=== PATIENT | female | born 1955 | race Caucasian/White ===

== ENCOUNTER → 2016-04-28 | Outpatient (CLI) | payer BC ==
[~2016-04-28] MED LIST: ACET-1311 PO; CYCL10TA6 PO; IBUP-1427 PO; LEVO88TA PO; ONDA4TAB46 PO; PRED20TA PO; PRLSR20 PO; SUMA25TA12 PO; TRAM-10 PO
== END | disposition home or self-care (01) ==
LOC: C.PAPS 09:48
PROVIDERS: ATTEND Obstetrics & Gynecology
DX: Z01.419 Encounter for gynecological examination (general) (routine) without abnormal findings (principal); N95.8 Other specified menopausal and perimenopausal disorders

== ENCOUNTER 2016-10-03 07:35 | Emergency (ER) | payer BC ==
[~2016-10-03] VITALS: Ht 162.6 cm; Wt 70.0 kg
[~2016-10-03 07:35] MED LIST changes: -CYCL10TA6 PO; -IBUP-1427 PO; -PRLSR20 PO; -SUMA25TA12 PO
[2016-10-03 07:38] VITALS: TEMP 36.4; Ht 162.6 cm; Wt 70.0 kg
[2016-10-03] MEDS ORDERED: MoRPHine SULFATE 10 MG/ML CARP/VIAL IM STA (08:02)
[2016-10-03] MEDS ORDERED: IBUP-1427 PO (08:08)
[2016-10-03] MEDS ORDERED: CYCL10TA6 PO (08:08)
[2016-10-03] MEDS ORDERED: ONDANSETRON 4MG OD TAB SL ONE (08:15)
[2016-10-03] MEDS ORDERED: PRLSR20 PO (08:37)
[2016-10-03] MEDS ORDERED: SUMA25TA12 PO (08:37)
--- NOTE | 2016-10-03 08:38 | EMERGENCY ROOM VISIT NOTE ---
History Report prepared by Ronen: Sherry Cruz Under the Supervision of: Dr. Tristian Clay M.D. First contact with patient: 07:48 Chief Complaint: HEADACHE Stated Complaint: MIGRAINE HEADACHE,NECK & SHOULDER MUSCLE TIGHTNESS History of Present Illness The patient is a 61 year old female who presents to the Emergency Room with complaints of a worsening occipital headache that started 1 week ago. She describes the headache as pressure. She is also experiencing photophobia and nausea. The patient states that she has been experiencing lower back pain from a bulging disc for the past month. She is also experiencing tightness in her neck and bilateral shoulders. She is urinating and moving her bowels normally. The patient denies abdominal pain. The patient has an appointment with her PCP tomorrow but she states that she could not wait secondary to the pain. The patient states that she follows with Dr. Warren - Interventional Pain Medicine and gets shots in her shoulders. The patient states that she has never been on muscle relaxers. She states that she is prescribed Imitrex for migraines and Tramadol for lower back pain. Upon review of the patient's EMR, the patient had a MRI of her back in July 2015. Source of History: patient Onset: 1 week ago Position: head (occiput) Quality: pressure Timing: worsening Associated Symptoms: + neck pain (tightness), + nausea, No abdominal pain Note: photophobia, bilateral shoulder tightness, urinating and moving bowels without difficulty Review of Systems All systems have been listed, reviewed, and are negative other than those previously mentioned. Please see Additional Medical History Sheet. Past Medical & Surgical Medical Problems: (1) Hypothyroidism Family History Cancer Gallbladder disease Heart disease Social History Smoking Status: Never Smoker Marital Status: Current/Historical Medications Scheduled Levothyroxine Sodium (Synthroid), 88 MCG PO DAILY Omeprazole (Prilosec), 20 MG PO DAILY Sumatriptan Succinate (Imitrex), 25 MG PO PRN Scheduled PRN Acetaminophen (Tylenol), 650 MG PO DIRECTED PRN for Pain Cyclobenzaprine Hcl (Flexeril), 10 MG PO TID PRN for back/ neck pain Ibuprofen Tab (Motrin), 600 MG PO Q6H PRN for Pain Tramadol (Ultram), 50 MG PO Q8H PRN for Pain Allergies Coded Allergies: No Known Allergies (Unverified , 10/03/16) Physical Exam Vital Signs Date Time Temp Pulse Resp B/P (MAP) Pulse Ox O2 Delivery O2 Flow Rate FiO2 10/03/16 08:55 68 16 149/89 99 10/03/16 07:38 36.4 68 18 176/93 96 Room Air Physical Exam GENERAL: Patient appears to be in moderate to severe distress. Patient is despondent. Patient awake, alert, oriented x 3. Patient follows commands. Patient does not appear toxic. Patient is adequately hydrated and well- nourished. SKIN: No erythema, pallor, cyanosis or rash HEENT: Normal head, normocephalic, pupils equal, reactive to light and accommodation. Ears normal. Oral cavity and posterior pharynx appear normal. Neck: Significant spasm in the superior region of the trapezius bilaterally, without adenopathy, no neck vein distention. LUNGS: Clear to auscultation. No wheezes, no rales, no rhonchi. HEART: No murmurs. No gallops. No rubs ABDOMEN: Soft, nontender. BACK: Vague tenderness over lower back. EXTREMITIES: No signs of trauma or infection. NEUROLOGIC: Cranial nerves II-XII within normal limits. No gross motor sensory function deficits. Medical Decision & Procedures Medications Administered Medications (Trade) Dose Ordered Sig/Miguel Route Start Time Stop Time Status Last Admin Dose Admin Morphine Sulfate (MoRPHine SULFATE INJ) 8 mg NOW STAT IM 10/03/16 08:02 10/03/16 08:04 DC 10/03/16 08:09 8 MG Ondansetron HCl (Zofran Odt) 4 mg ONE ONCE SL 10/03/16 08:15 10/03/16 08:16 DC 10/03/16 08:09 4 MG ED Course 0749: Past medical records reviewed. The patient was evaluated in room A9. A complete history and physical examination was performed. 0759: After examination, I discussed today's findings with her. She verbalized agreement of the treatment plan. She was discharged home. 0802: Ordered Morphine Sulfate 8 mg IM 0815: Ordered Zofran Odt 4 mg SL Medical Decision Nurses notes reviewed. Medical history sheet reviewed. Differential diagnosis includes but is not limited to: tension headache, migraine, sinus headache, cluster headache. The patient has symptoms and clinical findings most consistent with a tension headache. She has significant muscular spasm. The patient was given pain medication. I do not believe the patient requires any imaging studies at this time. The patient felt significant better. Medication Reconcilliation Current Medication List: was personally reviewed by me Blood Pressure Screening Patient's blood pressure: Elevated blood pressure Blood pressure disposition: Referred to PCP Impression Primary Impression: Tension headache Scribe Attestation The scribe's documentation has been prepared under my direction and personally reviewed by me in its entirety. I confirm that the note above accurately reflects all work, treatment, procedures, and medical decision making performed by me. Departure Information Dispostion Home / Self-Care Prescriptions Ibuprofen Tab (MOTRIN) 600 Mg Tab 600 MG PO Q6H Y for Pain, #40 TAB Prov: Tristian Clay M.D. 10/03/16 Cyclobenzaprine Hcl (FLEXERIL) 10 Mg Tab 10 MG PO TID Y for back/ neck pain, #30 TAB Prov: Tristian Clay M.D. 10/03/16 Referrals Elizabeth Alas D.O. (PCP) Forms HOME CARE DOCUMENTATION FORM, IMPORTANT VISIT INFORMATION Patient Instructions My [facility] Additional Instructions 1 Flexeril every 8 hours as needed for pain. 600 mg of Ibuprofen every 6 hours as needed for pain. Flexeril may cause sedation. Do not drive or operate machinery while on Flexeril. Follow up with your family doctor within 2 weeks.
[2016-10-03 08:55] VITALS: BP 149/89; PULSE 68; O2SAT 99
== END 2016-10-03 08:57 | disposition home or self-care (01) ==
LOC: C.EDB 07:37 → C.EDA 08:57
DX: G44.209 Tension-type headache, unspecified, not intractable (principal); E03.9 Hypothyroidism, unspecified; Z79.899 Other long term (current) drug therapy; Z80.9 Family history of malignant neoplasm, unspecified; Z83.79 Family history of other diseases of the digestive system; Z82.49 Family history of ischemic heart disease and other diseases of the circulatory system

== ENCOUNTER → 2016-10-11 | Outpatient (CLI) | payer BC ==
[~2016-10-11] MED LIST changes: +CYCL10TA6 PO; +IBUP-1427 PO; -ONDA4TAB46 PO; -PRED20TA PO; +PRLSR20 PO; +SUMA25TA12 PO
--- NOTE | 2016-10-11 15:36 | DIAGNOSTIC IMAGING REPORT ---
LUMBAR SPINE 5 VIEWS HISTORY: Chronic back pain. COMPARISON: Lumbar spine 07/19/2015. FINDINGS: Moderate facet osteoarthritis at L5-S1 and mild facet osteoarthritis at L4-L5. Grade I anterolisthesis of L5 on S1, unchanged. Vertebral body heights are maintained. Mild disc space narrowing at L4-L5 and L5-S1, unchanged. No fractures. IMPRESSION: No fractures within the lumbar spine. Degenerative changes within the lower lumbar spine and grade I anterolisthesis at L5-S1 remains unchanged. Electronically signed by: Kodi Real M.D. 10/11/2016 3:35 PM Dictated Date/Time: 10/11/2016 3:32 PM
== END | disposition home or self-care (01) ==
LOC: C.RAD 14:59
PROVIDERS: ATTEND Family Medicine
DX: M54.5 Low back pain (principal); M43.17 Spondylolisthesis, lumbosacral region

== ENCOUNTER → 2017-07-19 | Outpatient (CLI) | payer OTHER ==
[~2017-07-19] MED LIST changes: -CYCL10TA6 PO; -IBUP-1427 PO
--- NOTE | 2017-07-21 07:47 | MAMMOGRAPHY REPORT ---
BILATERAL DIGITAL SCREENING MAMMOGRAM TOMOSYNTHESIS WITH CAD: 07/19/2017 CLINICAL HISTORY: Routine screening. Patient has no complaints. TECHNIQUE: Breast tomosynthesis in addition to standard 2D mammography was performed. Current study was also evaluated with a Computer Aided Detection (CAD) system. COMPARISON: Comparison is made to exams dated: 07/29/2013 mammogram - [facility] an d 07/31/2008 mammogram - [facility] [place]. BREAST COMPOSITION: There are scattered areas of fibroglandular density in both breasts. FINDINGS: No suspicious masses, calcifications, or areas of architectural distortion are noted in ei ther breast. There has been no significant interval change compared to prior exams. IMPRESSION: ACR BI-RADS CATEGORY 1: NEGATIVE There is no mammographic evidence of malignancy. A 1 year screening mammogram is recommended. The pa tient will receive written notification of the results. Approximately 10% of breast cancers are not detected with mammography. A negative mammographic report should not delay biopsy if a clinically suggestive mass is present. Emily Ramirez M.D. ah/:07/19/2017 16:04:53 Cake Icer: Maria Del Carmen LLANES(Georgette)(M), [facility] letter sent: Normal 1/2 BI-RADS Code: ACR BI-RADS Category 1: Negative
== END | disposition home or self-care (01) ==
LOC: C.MAMM 15:05
PROVIDERS: ATTEND Family Medicine
DX: Z12.31 Encounter for screening mammogram for malignant neoplasm of breast (principal)

== ENCOUNTER → 2017-08-02 | Outpatient (CLI) | payer OTHER ==
--- NOTE | 2017-08-02 15:21 | DIAGNOSTIC IMAGING REPORT ---
R RIBS UNILATERAL WITH PA CHEST CLINICAL HISTORY: 62 years-old Female presenting with R22.2 LOCALIZED SWELLING, MAS AND LUMP, TRUNK. TECHNIQUE: PA view of the chest and frontal and oblique views of the right ribs were obtained. COMPARISON: None. FINDINGS: Atherosclerosis of the aortic arch. Cardiac silhouette top normal in size. Lungs and pleural spaces clear. Degenerative changes of the spine. Cholecystectomy clips noted. No displaced right rib fracture. IMPRESSION: 1. No acute cardiopulmonary disease. 2. No displaced right rib fracture. Electronically signed by: Lv Estrada M.D. 08/02/2017 3:20 PM Dictated Date/Time: 08/02/2017 3:19 PM
== END | disposition home or self-care (01) ==
LOC: C.RAD1850 14:49
PROVIDERS: ATTEND Student in an Organized Health Care Education/Training Program
DX: R22.2 Localized swelling, mass and lump, trunk (principal)

== ENCOUNTER → 2017-10-17 | Outpatient (CLI) | payer OTHER ==
[~2017-10-17] MED LIST changes: +ATOR-22 PO; +DICY10CA55 PO; +LEVO75TA PO; +OPTIRAY 320 IV PRN; +SUMA25TA PO; +ULT50X PO
--- NOTE | 2017-10-17 07:55 | DIAGNOSTIC IMAGING REPORT ---
CT SCAN OF THE CHEST WITH IV CONTRAST CLINICAL HISTORY: Right-sided chest wall mass. COMPARISON STUDY: Chest x-ray dated 08/02/2017. Ultrasound of the right chest wall dated 08/08/2017. TECHNIQUE: Following the IV administration of 92 cc of Optiray 320, CT scan of the thorax was performed from the thoracic inlet to the upper abdomen. Images are reviewed in the axial, sagittal, and coronal planes. IV contrast was administered without complication. A dose lowering technique was utilized adhering to the principles of ALARA. CT DOSE: 227.77 mGy.cm FINDINGS: Thyroid: Atrophic. Thoracic aorta: The thoracic aorta is normal in caliber and demonstrates standard 3-vessel arch anatomy. No dissection is seen. Pulmonary vasculature: The pulmonary trunk is normal in caliber. There are no filling defects identified in the central pulmonary vessels to indicate pulmonary embolus. Note that this examination was not protocoled for evaluation of the pulmonary arteries. Heart: The heart is normal in size and configuration, and without pericardial effusion. Lungs and pleural spaces: The lungs and pleural spaces are clear noting foci of bibasilar atelectasis. The trachea and central airways are patent. Mediastinum: There is no mediastinal lymphadenopathy. Sue: Clear. Axillae: There is no axillary lymphadenopathy. Upper abdomen: Cholecystectomy clips are noted. There is central intrahepatic biliary ductal dilatation. A small hiatal hernia is identified Skeletal structures: The skeletal structures are osteopenic. Mild degenerative change is noted in the thoracic spine. No lytic or blastic bony lesions are seen. Soft tissues: There is a lobulated water attenuation lesion seen deep to the right breast and pectoral muscle in the right anterior chest wall. This measures 3.1 x 1.8 cm, and there is no evidence of invasion of the overlying musculature or remodeling of the underlying rib. IMPRESSION: 1. There is a 3.1 x 1.8 cm lobulated, nonaggressive appearing, water attenuation lesion deep to the right breast and pectoralis muscle. No enhancing nodularity or soft tissue component is seen. This is pathologically indeterminant, and differential considerations include a lymphangioma, cystic nerve sheath tumor, chronic seroma/liquefied hematoma, or other cystic lesion. Ultrasound-guided fine-needle aspiration of this nodule is recommended. 2. The lungs are clear. 3. Additional findings as above. Electronically signed by: Thong Cisneros M.D. 10/17/2017 7:54 AM Dictated Date/Time: 10/17/2017 7:34 AM
== END | disposition home or self-care (01) ==
LOC: C.CTS 07:00
PROVIDERS: ATTEND Physician Assistant
DX: R22.2 Localized swelling, mass and lump, trunk (principal); N64.9 Disorder of breast, unspecified; M62.9 Disorder of muscle, unspecified

== ENCOUNTER → 2017-10-24 | Outpatient (CLI) | payer OTHER ==
[~2017-10-24] MED LIST changes: -OPTIRAY 320 IV PRN
[2017-10-24 10:07] LABS: BASO % 1.5 %; BASO ABS # 0.08 K/uL (0-0.2); EOS ABS # 0.16 K/uL (0-0.5); HEMATOCRIT 38.9 % (37-47); HEMOGLOBIN 12.9 g/dL (12.0-16.0); LYMPH ABS # 2.06 K/uL (1.2-3.4); MEAN CELL VOLUME 88.2 fL (80-100); MEAN CORPUSCULAR HEMOGLOBIN 29.3 pg (25-34); MEAN CORPUSCULAR HGB CONC 33.2 g/dl (32-36); MEAN PLATELET VOLUME 9.6 fL (7.4-10.4); MONO % 6.3 %; MONO ABS # 0.34 K/uL (0.11-0.59); NEUT % 51.2 %; NEUT ABS # 2.78 K/uL (1.4-6.5); PLATELET COUNT 240 K/uL (130-400); RED CELL DISTRIBUTION WIDTH CV 12.2 % (11.5-14.5); RED CELL DISTRIBUTION WIDTH SD 39.1 fL (36.4-46.3); WHITE BLOOD COUNT 5.42 K/uL (4.8-10.8)
[2017-10-24 10:37] LABS: BLOOD UREA NITROGEN 12 mg/dl (7-18); CALCIUM 9.4 mg/dl (8.5-10.1); CARBON DIOXIDE 27 mmol/L (21-32); CREATININE 0.64 mg/dl (0.60-1.20); GLUCOSE 97 mg/dl (70-99); POTASSIUM 3.6 mmol/L (3.5-5.1); SODIUM 141 mmol/L (136-145)
== END | disposition home or self-care (01) ==
LOC: C.CPL 09:18
PROVIDERS: ATTEND Surgery
DX: Z01.818 Encounter for other preprocedural examination (principal); M79.9 Soft tissue disorder, unspecified

== ENCOUNTER 2017-10-25 09:56 | Inpatient (IN) | payer OTHER ==
[2017-10-24 07:59] VITALS: BMI 25.0
[~2017-10-25] VITALS: Ht 162.6 cm; Wt 67.7 kg
[2017-10-25] VITALS (8 sets, daily range): BP systolic 118–168; BP diastolic 72–84; PULSE 64–82; TEMP 36.3–36.9; O2SAT 93–98; Ht 162.6 cm; Wt 67.7 kg
[~2017-10-25 09:56] MED LIST changes: -ACET-1311 PO; +LACTATED RINGER'S 1000ML 1,000 ML IV SCH; -LEVO88TA PO; -PRLSR20 PO; -SUMA25TA12 PO; -TRAM-10 PO; -ULT50X PO
[2017-10-25] MEDS ORDERED: BUPIVACAINE LIPOSOME 1/3% 266 MG/20 ML VIAL ONE (12:42)
[2017-10-25] MEDS ORDERED: BUPIVACAINE 0.5 % 5 MG/1 ML PF 10ML VIAL ONE (12:42)
[2017-10-25] MEDS ORDERED: SODIUM CHLORIDE 0.9% PF 50 ML VIAL ONE (12:42)
[2017-10-25] MEDS ORDERED: DEXAMETHASONE SOD INJ 4 MG/ML VIAL ONE (12:48)
[2017-10-25] MEDS ORDERED: MIDAZOLAM HCL 1 MG/ML 2ML VIAL ONE (12:48)
[2017-10-25] MEDS ORDERED: ONDANSETRON INJ 2 MG/ML 2 ML VIAL ONE (12:48)
[2017-10-25] MEDS ORDERED: PROPOFOL IV EMULSION 10 MG/ML 20 ML VIAL ONE (12:48)
[2017-10-25] MEDS ORDERED: LIDOCAINE HCL 2% 2 ML VIAL (20MG/ML) ONE (12:48)
[2017-10-25] MEDS ORDERED: FENTANYL CITRATE INJ 50 MCG/1 ML 2 ML VIAL ONE ×2 (12:48→13:47)
--- NOTE | 2017-10-25 12:58 | History & Physical Bridge Note ---
H&P Re-Evaluation Bridge Note: I have examined the patient, reviewed the History & Physical and in the interval since the performance of the History & Physical I have noted the following changes of clinical significance: No changes noted
[2017-10-25] MEDS ORDERED: NALOXONE HCL 0.4 MG/1 ML VIAL/CARP IV PRN (13:00)
[2017-10-25] MEDS ORDERED: PHENYLEPHRINE 100MCG/ML 5ML SYR IV PRN (13:00)
[2017-10-25] MEDS ORDERED: ONDANSETRON INJ 2 MG/ML 2 ML VIAL IV PRN (13:00)
[2017-10-25] MEDS ORDERED: EpHEDrine SULFATE INJ 50 MG/ML AMP IV PRN (13:00)
[2017-10-25] MEDS ORDERED: LABETALOL HCL IV 5 MG/ML 20ML IV PRN (13:00)
[2017-10-25] MEDS ORDERED: FLUMAZENIL 0.1 MG/1 ML 10 ML VIAL IV PRN (13:00)
[2017-10-25] MEDS ORDERED: MEPERIDINE HCL 25 MG/ML CARP IV PRN (13:00)
[2017-10-25] MEDS ORDERED: ATROPINE SULFATE 0.1 MG/ML 5ML SYR IV PRN (13:00)
[2017-10-25] MEDS ORDERED: CEFAZOLIN SOD 1 GM VIAL ONE (13:40)
[2017-10-25] MEDS ORDERED: GLYCOPYRROLATE INJ 0.2 MG/ML VIAL ONE ×2 (13:52→14:14)
[2017-10-25] MEDS ORDERED: NEOSTIGMINE METHYLSULFATE 5 MG/5 ML SYR ONE (13:52)
[2017-10-25] MEDS ORDERED: ROCURONIUM BROMIDE 10 MG/ML 5 ML VIAL ONE (13:57)
--- NOTE | 2017-10-25 14:32 | [facility] Post Operative Brief Note ---
Immediate Operative Summary Operative Date Oct 25, 2017. Pre-Operative Diagnosis Right Chest Mass Post-Operative Diagnosis Same Procedure(s) Performed Right chest wall resection Surgeon Dr. Maco Tavarez Employee Benefits Specialist Surgeon(s) Alexis Hart PA-C Estimated Blood Loss 10ML Findings Consistent with Post-Op Diagnosis Specimens Frozen Section 1. Right chest wall mass, sent at 1355. Anesthesia Type General
[2017-10-25] MEDS: FENTANYL CITRATE INJ 50 MCG/1 ML 2 ML VIAL IV PRN ×4 (14:41→15:06)
[2017-10-25] MEDS ORDERED: SUMATRIPTAN SUCCINATE 25 MG TAB PO PRN (14:45)
[2017-10-25] MEDS ORDERED: DICYCLOMINE HCL 10 MG CAP PO PRN (14:45)
--- NOTE | 2017-10-25 15:01 | DIAGNOSTIC IMAGING REPORT ---
CHEST ONE VIEW PORTABLE CLINICAL HISTORY: chest tube tube position COMPARISON STUDY: No previous studies for comparison. FINDINGS: Right-sided chest tube in good position. No significant postprocedural pneumothorax. Slight interstitial prominence bilaterally. IMPRESSION: No significant pneumothorax. Right-sided chest tube in good position. The above report was generated using voice recognition software. It may contain grammatical, syntax or spelling errors. Electronically signed by: Erasmo Avelar M.D. 10/25/2017 3:00 PM Dictated Date/Time: 10/25/2017 2:59 PM
[2017-10-25] MEDS: HYDROmorphone INJ 0.5 MG/0.5 ML SYR IV PRN ×2 (15:21→15:29)
--- NOTE | 2017-10-25 15:29 | Anesthesiology Progress Note ---
Anesthesia Post Op Note Date & Time Oct 25, 2017 at 15:28 Vital Signs Pain Intensity: 3 Vital Signs Past 12 Hours Date Time Temp Pulse Resp B/P (MAP) Pulse Ox O2 Delivery O2 Flow Rate FiO2 10/25/17 15:22 59 18 10/25/17 15:22 59 18 99 10/25/17 15:21 169/71 10/25/17 15:17 58 12 10/25/17 15:17 59 12 99 10/25/17 15:16 181/73 10/25/17 15:12 58 12 98 10/25/17 15:12 58 12 10/25/17 15:11 157/77 10/25/17 15:07 63 10 99 10/25/17 15:07 62 10 10/25/17 15:06 152/63 10/25/17 15:05 58 9 99 10/25/17 15:05 58 9 10/25/17 15:01 166/76 10/25/17 15:00 60 12 99 10/25/17 15:00 61 12 10/25/17 14:56 180/76 10/25/17 14:55 61 10 98 10/25/17 14:55 61 10 10/25/17 14:51 187/82 10/25/17 14:50 68 14 97 10/25/17 14:50 67 14 10/25/17 14:46 175/88 10/25/17 14:45 70 14 100 10/25/17 14:45 70 14 10/25/17 14:41 193/85 10/25/17 14:40 63 17 10/25/17 14:40 63 17 99 10/25/17 14:36 168/91 10/25/17 14:35 69 15 100 10/25/17 14:35 69 15 10/25/17 14:35 36.3 70 16 168/91 (105) 100 Oxymask 10 10/25/17 10:33 36.8 71 18 168/81 97 Room Air Notes Mental Status: alert / awake / arousable, participated in evaluation Pt Amnestic to Procedure: Yes Nausea / Vomiting: adequately controlled Pain: adequately controlled Airway Patency, RR, SpO2: stable & adequate BP & HR: stable & adequate Hydration State: stable & adequate Anesthetic Complications: no major complications apparent
[2017-10-25] MEDS ORDERED: PROMETHAZINE HCL INJ 12.5 MG in SODIUM CHLORIDE 0.9% 50ML 50 ML IV STA (16:09)
[2017-10-25] MEDS: ONDANSETRON INJ 2 MG/ML 2 ML VIAL IV PRN (18:13)
[2017-10-25] MEDS: D5W AND 1/2NSS 1,000 ML IV SCH (18:13)
[2017-10-25] MEDS: MoRPHine SULFATE 4 MG/ML 1 ML CARP\\VIAL IV PRN ×3 (18:20→23:00)
[2017-10-25] MEDS ORDERED: ATORVASTATIN 20 MG TAB PO SCH (21:00)
--- NOTE | 2017-10-25 22:19 | OPERATIVE REPORT ---
DATE OF OPERATION: 10/25/2017 PREOPERATIVE DIAGNOSIS: Painful swelling, right upper chest area. 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 SURGEON: Maco Tavarez MD MARKETING CONTENT SPECIALIST: Alexis Hart PA-C (MrZaira Lintonjohnmonica was present for the entire case and was instrumental in first assisting and closing the incision at the end). ANESTHESIA: General anesthesia with endotracheal intubation. INDICATION FOR PROCEDURE AND FINDINGS: Clara Liz is a 62-year-old female who has noted a painful mass which is growing in her right chest wall just above her breast in the superior portion. She is worked up and found to have a mass that appeared to be under her pectoralis muscle. It was painful. She denied a history of trauma. There was no ecchymosis or erythema. She is referred to me, and I saw her just 2 days ago; however, she is in such anxiety over this mass that I told her that we would go ahead and excise it as it is not very large and send it off to lab. I explained my concerns that we may well be dealing with a sarcoma. On 10/25/2017, the patient underwent uncomplicated excision of this mass. It was involving the rib. I did enter the pleural cavity and removed the rib with good margins on both sides. It appeared we had good margins all around as it was not attached to any other tissues. It was essentially encapsulated although we did rupture the capsule after we brought it out. It had some gelatinous material in it. We attempted a frozen section, and I actually viewed the specimen with Dr. Lv Bennett, and it was unclear what the gelatinous material represented. We did not do a frozen, but we did have good margins grossly. I did not repair this defect as it was a single rib. I closed the pectoralis muscle over it. We did place a 24-Hungarian chest tube. Blood loss was negligible. She tolerated it well. DESCRIPTION OF PROCEDURE: The patient was brought to the operating room and laid in supine position. General anesthesia induced. Endotracheal intubation was performed. After prepping and draping in the usual sterile fashion, calling appropriate timeout, and giving preoperative antibiotics, I made a transverse incision over this mass. The incision was about 10 cm. This brought me down to the pectoralis muscle, which I in the direction of its fibers. It should be important to note that I did go through the superior aspect of the breast. After the pectoralis muscle, I could see that there was a capsule around this mass. I freed it up from the underlying muscle leaving some of the muscle on although it did not appear to be grossly involved. We freed it all up and got good medial and lateral as well as superior and inferior margins. I then could see that this was not coming off the rib. For this reason, I then cut the costal cartilage actually anterior. In lifting it up, I was able to divide the intercostal muscles on both sides of this rib as I pulled upward. We were in the pleural cavity. I then cut the rib lateral. This was delivered off the field. There was very little bleeding, it was controlled with cautery. A 24-Hungarian chest tube was then placed just below the inframammary crease directed toward the apex and held in place with heavy silk suture. 0 Polysorb was used to close the pectoralis muscle over this defect, and 4-0 Monocryl was used in running subcuticular fashion to approximate the wound edges. She tolerated it quite well. We will have to see what the permanent sections show. I attest to the content of the Intraoperative Record and any orders documented therein. Any exceptions are noted below. LEONIDAS
[2017-10-26] MEDS: D5W AND 1/2NSS 1,000 ML IV SCH (03:06)
[2017-10-26] MEDS: MoRPHine SULFATE 4 MG/ML 1 ML CARP\\VIAL IV PRN (03:11)
[2017-10-26] MEDS: ONDANSETRON INJ 2 MG/ML 2 ML VIAL IV PRN (03:15)
[2017-10-26 03:49] VITALS: BP 132/73; PULSE 98; TEMP 36.6; O2SAT 99
[2017-10-26] MEDS ORDERED: LEVOTHYROXINE 75 MCG TAB PO SCH (06:00)
[2017-10-26] MEDS ORDERED: METOCLOPRAMIDE HCL INJ 5 MG/ML 2 ML VIAL IV SCH (06:00)
[2017-10-26] MEDS ORDERED: ULT50X PO (06:52)
--- NOTE | 2017-10-26 06:56 | Discharge Instructions ---
Discharge Instructions Date of Service Oct 26, 2017. Admission Reason for Admission: Soft Tissue Mass Right Chest Wall Discharge Discharge Diagnosis / Problem: same Discharge Goals Goal(s): Decrease discomfort (Take pain medications as ordered.), Learn about illness (Return to office to go over final pathology reports.) Activity Recommendations Activity Limitations: as noted below Lifting Limitations: gradually increase as tolerated Exercise/Sports Limitations: gradually increase as tolerated May Resume Sexual Activity: when tolerated Shower/Bathe: may shower/bathe in 3 days May remove all dressings in 3 days and shower. Walk!!!!! Avoid cigarette smoking. . Instructions / Follow-Up Instructions / Follow-Up My office will call you about follow up next week. Current Hospital Diet Patient's current hospital diet: Regular Diet Discharge Diet Recommended Diet: Regular Diet Procedures Procedures Performed: Right chest wall resection Pending Studies Studies pending at discharge: yes List of pending studies: Pathology Medical Emergencies . Who to Call and When: Medical Emergencies: If at any time you feel your situation is an emergency, please call 911 immediately. . Non-Emergent Contact Non-Emergency issues call your: Primary Care Provider . "Provider Documentation" section prepared by Maco Tavarez. .
[2017-10-26] MEDS ORDERED: POLYETHYLENE (MIRALAX) 17 GM PACK PO ONE (07:00)
[2017-10-26 07:15] VITALS: BP 131/77; PULSE 80; TEMP 37.1; O2SAT 91
--- NOTE | 2017-10-26 07:18 | DIAGNOSTIC IMAGING REPORT ---
CHEST ONE VIEW PORTABLE CLINICAL HISTORY: s/p chest tube out tube position COMPARISON STUDY: 10/25/2017 FINDINGS: Interval removal of the right-sided chest tube. No significant residual pneumothorax. Unchanging atelectasis left base. IMPRESSION: No significant pneumothorax post right sided chest tube removal. The above report was generated using voice recognition software. It may contain grammatical, syntax or spelling errors. Electronically signed by: Erasmo Avelar M.D. 10/26/2017 7:17 AM Dictated Date/Time: 10/26/2017 7:14 AM
[2017-10-26 08:50] VITALS: BP 131/77; PULSE 80; TEMP 37.1; O2SAT 91
--- NOTE | 2017-10-26 10:14 | Anesthesiology Progress Note ---
Anesthesia Post Op Note Date & Time Oct 26, 2017 at 10:13 Vital Signs Pain Intensity: 4.0 Vital Signs Past 12 Hours Date Time Temp Pulse Resp B/P (MAP) Pulse Ox O2 Delivery O2 Flow Rate FiO2 10/26/17 08:50 37.1 80 18 91 Room Air 10/26/17 07:40 Room Air 10/26/17 07:15 37.1 80 18 131/77 (95) 91 Room Air 10/26/17 03:49 36.6 98 20 132/73 (92) 99 Nasal Cannula 1.0 10/25/17 23:44 Nasal Cannula 1.0 10/25/17 22:46 36.8 82 16 138/76 (96) 95 Nasal Cannula 1.0 Notes Mental Status: alert / awake / arousable, participated in evaluation Pt Amnestic to Procedure: Yes Nausea / Vomiting: adequately controlled Pain: adequately controlled Airway Patency, RR, SpO2: stable & adequate BP & HR: stable & adequate Hydration State: stable & adequate Anesthetic Complications: no major complications apparent
[2017-10-26] MEDS ORDERED: METOCLOPRAMIDE HCL INJ 10 MG in SYRINGE 0 ML IV SCH (12:45)
--- NOTE | 2017-10-26 17:53 | DISCHARGE SUMMARY ---
DATE OF DISCHARGE: 10/26/17 Ms. Liz was admitted yesterday after I performed a resection of a chest wall mass which included a rib. We placed a chest tube. She had no air leak and drained very little. I removed her chest tube this morning about 18 hours after surgery. She tolerated the procedure quite well. She is of course very nervous about what the pathology shows. I discussed this with pathology today. They will have to decalcify and hopefully process the slides today. I will see the patient back next week in the office with a chest x-ray. Her chest x-ray after pulling her chest tube looked quite good. I did give her tramadol for pain. We will see her back in the office next week to go over her final pathology report. Discharge instructions were given and for wound care.
--- NOTE | 2017-11-08 05:06 | EDITING REQUIRED CODING QUERY ---
PATHOLOGY To promote full compliance with coding requirements relating to patient care, physician participation is requested in all cases of medical records coder uncertainty. Please assist us with the question(s) below: Please review the Pathology report & Addendum; please document any relevant diagnosis(es) below. Thank you! CHRISTINE Parker [facility] Diagnosis(es): Benign chondroma
== END 2017-10-26 10:00 | disposition home or self-care (01) | DRG 168 ==
LOC: C.ACU 09:56 → C.MSW 14:57 → ENRESERV 15:42
PROVIDERS: ADMIT Surgery; ATTEND Surgery
PROC: 0KBH0ZX Excision of Right Thorax Muscle, Open Approach, Diagnostic (ICD-10-PCS; principal; 2017-10-25 12:00)
PROC: 0PT10ZZ Resection of 1 to 2 Ribs, Open Approach (ICD-10-PCS; principal; 2017-10-25 12:00)
PROC: 0WP8X0Z Removal of Drainage Device from Chest Wall, External Approach (ICD-10-PCS; 2017-10-26)
DX: D16.7 Benign neoplasm of ribs, sternum and clavicle (principal); E03.9 Hypothyroidism, unspecified; F41.8 Other specified anxiety disorders; K58.9 Irritable bowel syndrome, unspecified; M19.90 Unspecified osteoarthritis, unspecified site; K31.84 Gastroparesis; Z83.49 Family history of other endocrine, nutritional and metabolic diseases; Z82.49 Family history of ischemic heart disease and other diseases of the circulatory system; Z80.1 Family history of malignant neoplasm of trachea, bronchus and lung

== ENCOUNTER → 2017-10-31 | Outpatient (CLI) | payer OTHER ==
[~2017-10-31] MED LIST changes: -LACTATED RINGER'S 1000ML 1,000 ML IV SCH; +ULT50X PO
--- NOTE | 2017-10-31 13:11 | DIAGNOSTIC IMAGING REPORT ---
CHEST 2 VIEWS ROUTINE HISTORY: 62 years-old Female M79.9 Soft tissue mass COMPARISON: Chest radiograph 10/26/2017, CT chest 10/17/2017 TECHNIQUE: PA and lateral views of the chest FINDINGS: Cardiac mediastinal and hilar silhouettes are within normal limits. Mild pleural thickening at the lung apices. No pneumothorax or overt pulmonary edema. Trace right pleural effusion. Linear subsegmental lateral left midlung and bibasilar opacities suggest atelectasis/scarring. Cholecystectomy clips are noted. Round lucencies project over the upper extremities on the lateral view. IMPRESSION: 1. Trace right pleural effusion. 2. Linear subsegmental bibasilar and lateral left midlung opacities suggest atelectasis/scarring. The above report was generated using voice recognition software. It may contain grammatical, syntax or spelling errors. Electronically signed by: Jason Sánchez M.D. 10/31/2017 1:09 PM Dictated Date/Time: 10/31/2017 1:06 PM
== END | disposition home or self-care (01) ==
LOC: C.RAD1850 12:55
PROVIDERS: ATTEND Surgery
DX: M79.9 Soft tissue disorder, unspecified (principal); R91.8 Other nonspecific abnormal finding of lung field